=== PATIENT | female | born 1940 | race Caucasian/White ===

== ENCOUNTER 2018-06-11 07:30 | Observation (INO) ==
[2018-06-11] MEDS ORDERED: Levofloxacin 500 mg Premix Inj 500 MG/100 ML PIGGYBACK IV.SIG ONE (08:27)
[2018-06-11] MEDS ORDERED: Heparin - SQ 10,000 UNITS/ML Vial ONE (08:27)
[2018-06-11] MEDS ORDERED: Sodium Chloride 0.9% 2 ML Flush PRN IV.FLUSH (08:35)
[2018-06-11] MEDS ORDERED: Sodium Chlor 0.9% Inj 500 ML IV.CONT ONE (08:45)
[2018-06-11] MEDS ORDERED: Chlorhexidine Gluconate 2% 1 Pack (2 Cloths) TOPICAL ONE (08:45)
[2018-06-11] MEDS ORDERED: Metoprolol Tartrate 25 MG Tablet PO ONE (08:45)
[2018-06-11 08:59] LABS: Activated Partial Thrombo Time 25.2 sec (24.3-30.1); INR 1.1 Ratio; Prothrombin Time 11.5 sec (9.8-11.6)
[2018-06-11] MEDS ORDERED: Sodium Chloride 0.9% 2 ML Flush BID IV.FLUSH SCH (09:00)
[2018-06-11] MEDS ORDERED: Levofloxacin 500 mg Premix Inj 500 MG/100 ML PIGGYBACK IV.SIG SCH (09:00)
[2018-06-11] MEDS ORDERED: Heparin - SQ 10,000 UNITS/ML Vial SQ SCH (09:00)
[2018-06-11] MEDS ORDERED: Dexmedetomidine Inj 200 MCG/2 ML Vial ONE (09:51)
[2018-06-11] MEDS ORDERED: Sugammadex Inj 200 MG/2 ML Vial IV.PUSH ONE (09:51)
[2018-06-11] MEDS ORDERED: Famotidine PF Inj 20 MG/2 ML Vial ONE (11:58)
[2018-06-11] MEDS ORDERED: Esmolol Bolus Inj 100 MG/10 ML Vial IV.PUSH ONE (12:15)
[2018-06-11] MEDS ORDERED: Lidocaine PF 1% Inj 5 ML Syringe OTHER ONE (12:15)
[2018-06-11] MEDS ORDERED: hydrALAZINE HCl Inj 20 MG/ML Vial IV.PUSH ONE (12:15)
[2018-06-11] MEDS ORDERED: Lidocaine 1%/Epinephrine 1:100,000 Inj 20 ML Vial INFILTRATN ONE ×2 (15:08→15:30)
[2018-06-11] MEDS ORDERED: Methylene Blue Inj 100 MG/10 ML Vial OTHER ONE (15:10)
[2018-06-11] MEDS ORDERED: LORazepam 0.5 MG Tablet PO PRN (15:49)
[2018-06-11] MEDS ORDERED: KCL 20 mEq/D5W/NaCl 0.45% Inj 1,000 ML ONE (16:21)
[2018-06-11] MEDS ORDERED: *Ondansetron Inj 4 MG/2 ML Vial PERIprocedural Use ONLY ONE (16:44)
[2018-06-11] MEDS ORDERED: *Promethazine Inj 25 MG/ML Vial PERIprocedural use ONLY ONE (17:06)
[2018-06-11] MEDS: KCL 20 mEq/D5W/NaCl 0.45% Inj 1,000 ML IV.CONT SCH (17:14)
[2018-06-11] MEDS ORDERED: fentaNYL Citrate Inj 100 MCG/2 ML Ampul ONE (17:26)
[2018-06-11] MEDS: Ketorolac Inj 30 MG/ML (IVP) Vial IV.PUSH SCH ×2 (17:33→23:21)
[2018-06-12] MEDS: KCL 20 mEq/D5W/NaCl 0.45% Inj 1,000 ML IV.CONT SCH (01:43)
[2018-06-12 04:13] VITALS: O2SAT 95
[2018-06-12] MEDS: Ketorolac Inj 30 MG/ML (IVP) Vial IV.PUSH SCH (06:21)
[2018-06-12 07:04] LABS: Baso % (Auto) 0.2 % (0.0-2.0); Hematocrit 42.7 % (35.0-46.0); Hemoglobin 14.3 gm/dL (11.6-15.3); Lymph # (Auto) 0.9 th/mm3 (1.0-4.8); Lymph % (Auto) 7.7 % (9.0-44.0); Mean Corpuscular HGB Conc 33.6 % (32.0-36.0); Mean Corpuscular Hemoglobin 29.8 pg (27.0-34.0); Mean Corpuscular Volume 88.8 fL (80.0-100.0); Mean Platelet Volume 8.4 fL (7.0-11.0); Mono # (Auto) 0.7 th/mm3 (0.0-0.9); Mono % (Auto) 5.7 % (0.0-8.0); Neut % (Auto) 86.4 % (16.0-70.0); Platelet Count 161 th/mm3 (150-450); Red Blood Count 4.81 mil/mm3 (4.00-5.30); Red Cell Distribution Width 13.8 % (11.6-17.2); White Blood Count 11.6 th/mm3 (4.0-11.0)
[2018-06-12 07:18] LABS: Calcium 8.2 mg/dL (8.5-10.1); Carbon Dioxide 25.3 meq/L (21.0-32.0); Potassium 4.3 meq/L (3.5-5.1)
[2018-06-12] MEDS ORDERED: Sulfamethoxazole/Trimethoprim 800-160 MG/20 ML UDC PO SCH (09:00)
[2018-06-12 09:30] VITALS: BP 109/54; PULSE 71; RESP 18; TEMP 99.6
--- NOTE | 2018-06-12 10:26 | MP ---
cc: Griselda Apodaca MD,Mustapha Mariee,Bonita SANCHEZ DATE OF OPERATION: 06/11/2018 DATE OF PROCEDURE: 06/11/2018 PREOPERATIVE DIAGNOSIS: Endometrial adenocarcinoma. POSTOPERATIVE DIAGNOSIS: Endometrial adenocarcinoma. PROCEDURE: Robotic-assisted laparoscopic hysterectomy, bilateral salpingo-oophorectomy. SURGEON: Dr. Griselda Apodaca. 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 ANESTHESIA: General endotracheal anesthesia. ESTIMATED BLOOD LOSS: 300 mL URINE OUTPUT: 200 mL IV FLUIDS: 1500 mL HISTORY AND INDICATIONS: A 77-year-old female with postmenopausal bleeding of approximately 6 months duration; found to have a thickened endometrial stripe. Biopsy showed, grade II endometrial cancer. She was counseled regarding recommendations for surgery and presents now for that endeavor. She was seen in the preop holding area where the findings in her case, plan of care are again reviewed. Questions were asked and answered. She expressed good understanding and would like to move forward with surgical evaluation. FINDINGS: Uterine cavity sounded to approximately 10 cm; a slightly prominent uterus, but tubes and ovaries grossly appeared normal. There were some adhesions between the omentum and the left upper quadrant. There were some adhesions between the colon and the left pelvic sidewall. The uterus, once removed, showed predominantly an exophytic tumor approximately 3.5 cm in diameter. It was not clear on preliminary assessment as to whether or not there was any myometrial invasion. If myometrial invasion were present, it was thought to be only perhaps 1-2 mm. There was no cervical extension. There were no appreciably enlarged pelvic or paraaortic lymph nodes. There were no peritoneal nodularities or implants seen within the peritoneal cavity. There were inflammatory adhesions between the colon and the left pelvic sidewall as well as the bladder to the lower uterine segment. There is diverticulum and it appears as though she has probably had prior history of diverticulitis without acute infection. STATEMENT OF COMPLEXITY/MODIFIER: Extensive adhesions, especially in the left pelvis with the colon adherent to the left pelvic sidewall overlying the adnexal structures with some obliteration of the cul-de-sac as well as adhesions to the bladder required significant additional time and lysis of adhesions. Also the adhesions in the left upper quadrant required repositioning of laparoscopic trocars to gain safe entry and to accomplish surgical objectives. Modifier should be applied accordingly. DESCRIPTION OF PROCEDURE: She is taken to the operating room and placed in dorsal lithotomy position after general endotracheal anesthesia was administered. A timeout was undertaken. She was identified by site recognition and hospital ID bracelet and the proposed procedure was reviewed and confirmed. She was carefully positioned in padded Omar stirrups. Arms were padded and secured to the sides. She was further secured to the operating table with egg crate padding and tape in a cross-chest over the shoulder fashion. All sites noted to be properly aligned with no malalignment or pressure points. She was prepped in a sterile fashion, draped below the waist, placed in high lithotomy position. The cervix was grasped. Narrow pelvic outlet. Small VCare was utilized, inserted and secured usual fashion. Guerra catheter placed in the bladder. She was returned to low lithotomy position. Complete and draping in anticipation laparoscopy confirmed that an orogastric tube was in the stomach on suction and with manual elevation of the abdominal wall and direct laparoscopic visualization, a 5 mm cannula was introduced into the left upper quadrant. Carbon dioxide gas was insufflated. Visibility was limited due to adhesions from the omentum to the left anterior abdominal wall. Camera was advanced to find a clear view and the adhesions were high in the abdomen. A decision was made to place the cannulas lower; so under laparoscopic visualization an 8 mm cannula was placed at the level of the umbilicus in the left abdomen; 8 mm cannula was placed at the level of the umbilicus in the right abdomen and a 12 mm cannula was placed through the umbilicus; all under laparoscopic visualization, and another 8 mm cannula placed in the left lateral quadrant. She was placed in Trendelenburg position. Peritoneal washings were obtained for cytology. The anatomy was surveyed with findings as described above. The small bowel was folded back on its mesenteric root and 3 Ray-Maryam sponges were placed around the root of the small bowel mesentery. The robotic system was brought into the operative field and attached in the usual fashion. Monopolar scissors, fenestrated bipolar forceps and ProGrasp manipulators were placed in arms #1, 2, and 3 respectively and I took my place at the surgeon's console. The right round ligament was isolated, cauterized, transected. The anterior and posterior leafs of the broad ligament were opened. The right ureter was identified. The right infundibulopelvic ligament was isolated and the intervening peritoneum was opened and the infundibulopelvic ligament was isolated, cauterized at the level of the pelvic brim where it was then transected. Posterior peritoneum dissected off the lower uterine segment and cervix and the right vesicouterine peritoneum was dissected off the lower uterine segment and cervix. There was generalized oozing encountered and most all tissues; extra adhesions on the bladder flap, which were isolated and taken down with focal sharp dissection and focal bipolar cautery. The right uterine vessels were skeletonized, cauterized and transected as were the cardinal, paracervical and uterosacral ligaments, thereby freeing the attachments along the right side of the uterus and cervix. Attention was directed toward the left side, where adhesiolysis was carried out to mobilize the colon to free it from its attachment overlying the left pelvic sidewall and to free it was obliteration from the posterior cul-de-sac to take down adhesions to isolate the gonadal vessels all with sharp dissection; focal cautery for small bleeders. The left round ligament was isolated, cauterized, and transected. The anterior and posterior leaves of the broad ligament were further opened. Retroperitoneal dissection was carried out until the left ureter was identified. The left infundibulopelvic ligament was now able to be isolated as the intervening peritoneum was opened. The infundibulopelvic ligament was isolated toward the pelvic brim by further lysis of adhesions, mobilization of the colon and Pericolonic fat and now the infundibulopelvic ligament was cauterized and transected. Posterior peritoneum opened along the left side of the uterus and cervix and the left vesicouterine peritoneum dissected off the lower uterine segment and cervix. Some dense adhesions were again noted; taken down with sharp dissection and some bleeding was encountered overlying the bladder flap and a Ray-Maryam sponge was placed there for pressure for continued dissection. The left uterine vessels were skeletonized, cauterized and transected as were the cardinal, paracervical and uterosacral ligaments, thereby freeing the attachments along the left side of the uterus and cervix. A circumferential colpotomy was performed the cervix from the upper vagina. The specimen was withdrawn transvaginally which included uterus, cervix, tubes and ovaries and the pneumo-occluder balloon was placed in the vagina to maintain pneumoperitoneum. Instruments 1 and 3 exchanged for needle drivers as a 0-Vicryl suture was introduced. Vaginal cuff was closed with full-thickness closure starting at the left corner, incorporating the posterior peritoneum and the edge of the uterosacral ligament. Cuff closure was held on countertraction as full thickness continuous closure was carried across the vaginal cuff incorporating the edge of the posterior peritoneum to the contralateral corner where it was fixed, secured and tied. The needle was cut and removed. The integrity of the bladder was confirmed by filling the bladder with saline dye with methylene blue. Additional dissection ensured mobilization such that there was a good margin between the vaginal cuff suture line and the bladder edge. Good peristalsis of ureters bilaterally. There were no thin areas of the bladder, no visibility of blue; certainly no extravasation of dye, but there was some diffuse oozing and some superficial irritation adjacent to the bladder due to extensive dissection, but the integrity was intact and the bladder was drained. The pelvis was thoroughly irrigated. Small bleeders rendered hemostatic with bipolar cautery. A 3-0 Vicryl suture was introduced and bleeding at the bladder flap was rendered hemostatic with interrupted [id number] 3-0 Vicryl sutures. The needle was cut and removed. To assist in continued hemostasis, hemostatic Mitch powder was placed across the vaginal cuff, across the bladder flap and pelvic sidewall. Pulmonary pathology came back showing no overt invasive cancer and it was felt that further dissection and lymphadenectomy would be associated with morbidity that exceeded benefit and it was felt that all reasonable surgical objectives in this individual had been completed. The robotic instruments were removed. The robotic system was disengaged from the operative field. I reentered the bedside under sterile condition. Each of the 3 Ray-Maryam sponges that had been placed were removed individually; each were inspected and noted to be removed in their entirety. Visual inspection and preliminary counts showed there to be no remaining foreign objects in the peritoneal cavity. All sites remained hemostatic. Attention was directed toward closing. The 12 mm fascial defect was closed with interrupted 0-Vicryl sutures using a fascial closure needle apparatus. They were tied securely which rendered the umbilical incision completely hemostatic and airtight. The remaining cannulas were withdrawn. Carbon dioxide gas was removed from the peritoneal cavity; 3-0 Vicryl subcutaneous, 3-0 Vicryl subcuticular and Steri-Strips were used to close these incisions. She was returned to dorsal lithotomy position. Exam confirmed the vaginal cuff to be well supported and hemostatic. Superficial irritation of the proximal vaginal mucosa; the remaining hemostatic Mitch was placed at the vaginal apex. At the perineum at the introitus, there was a superficial laceration which was rendered hemostatic with interrupted [id number] 3-0 Vicryl sutures. There were no remaining foreign objects in the vagina. Final counts were correct. She was returned to dorsal supine position and was pending reversal of anesthesia, when I left the operating room to precede her to the postanesthesia care unit. MD HARSH Bradshaw/cecilio , 08:03 AM , 08:19 AM
--- NOTE | 2018-06-12 14:09 | MD ---
cc: Griselda Apodaca MD,Bonita Wiley MD DATE OF DISCHARGE: 06/12/2018 DATE OF ADMISSION: 06/11/2018 DATE OF DISCHARGE: 06/12/2018. PROCEDURE: 06/11/2018: Robotic-assisted laparoscopic hysterectomy, bilateral salpingo-oophorectomy. DIAGNOSIS: Endometrial HOSPITAL COURSE: She did well in her early postoperative period. Hemodynamically stable, tolerating oral intake. A Guerra catheter left indwelling due to extensive dissection around the bladder. Ins and Outs: 3490/1000. LABORATORY DATA: Labs show an H and H of 14.3 and 42.7, potassium 4.3, creatinine elevated consistent with prior baseline 1.21. PHYSICAL EXAMINATION: VITAL SIGNS: Afebrile, pulse 66-73, respirations 17, blood pressure 110/48, O2 saturation 95%. GENERAL: She is alert and oriented x3, somnolent, but awake. LUNGS: Clear. There are bibasilar mild rales. CARDIOVASCULAR: Regular rate and rhythm. ABDOMEN: Soft. Incision is clean and dry. ASSESSMENT: Postoperative day number 1; doing well in her early postoperative period. Findings at the time of surgery, steps taken and pathology discussed; activities restrictions again reviewed. Questions were asked and answered. She expressed good understanding. PLAN: I anticipate she will meet discharge criteria to go home today. She is to resume her prior medications. She will have tramadol for pain if she needs it. Otherwise, she can take [id number] medication. She will take Septra once daily for urinary tract prophylaxis given indwelling Guerra catheter. The bag will be changed to a leg bag and will be taught by nursing for home care for self use and our office numbers again made available. She is to contact our office to schedule a followup in 1 week. MD HARSH Bradshaw/cecilio , 07:50 AM , 07:57 AM
== END 2018-06-12 10:50 | disposition home or self-care (01) ==
LOC: HSDI 07:30 → HSDC 07:30 → HCIN 17:54
PROVIDERS: ADMIT Obstetrics & Gynecology Gynecologic Oncology; ATTEND Obstetrics & Gynecology Gynecologic Oncology